=== PATIENT | female | born 1965 | race Asian ===

== ENCOUNTER → 2019-05-25 | Outpatient (CLI) | payer OTHER | END | disposition home or self-care (01) | LOC: PUC 14:00 | DX: R76.11 Nonspecific reaction to tuberculin skin test without active tuberculosis (principal) ==

== ENCOUNTER 2021-03-15 10:34 | Emergency (ER) | payer OTHER ==
[2021-03-15 10:57] LABS: COVID AG,FIA SOURCE NASOPHARYNGEAL
== END 2021-03-15 11:00 | disposition left against medical advice (07) ==
LOC: EMS 10:37
DX: Z20.822 Contact with and (suspected) exposure to COVID-19 (principal); Z53.21 Procedure and treatment not carried out due to patient leaving prior to being seen by health care provider